=== PATIENT | male | born 1970 | race African-American/Black ===

== ENCOUNTER 2020-06-21 02:48 | Emergency (ER) | payer MEDICAID ==
[~2020-06-21] VITALS: Ht 182.9 cm; Wt 109.0 kg
[2020-06-21] MEDS ORDERED: KETOROLAC 30MG/ML VIAL IV STA (03:22)
[2020-06-21] MEDS ORDERED: GABAPENTIN 300MG CAPSULE PO ONE (03:30)
[2020-06-21 03:46] LABS: BASOPHILS % 1.3 % (0.0-2.0); EOSINOPHILS % 1.1 % (0.0-5.0); HEMATOCRIT. 35.8 % (42.0-52.0); HEMOGLOBIN. 12.2 g/dL (14.0-18.0); LYMPHOCYTES % 31.3 % (20.0-50.0); MEAN PLATELET VOLUME 8.4 fl (7.4-10.4); MONOCYTES % 6.8 % (2.0-8.0); NEUTROPHILS % 59.5 % (40.0-76.0); PLATELET 246 x1000/uL (130-400); RED BLOOD CELL COUNT 4.37 mill/uL (4.7-6.1); RED CELL DISTRIBUTION WIDTH 15.1 % (11.6-14.6)
[2020-06-21 03:49] LABS: CHLORIDE 103 mEq/L (98-107)
[2020-06-21 03:54] LABS: CLARITY URINE CLEAR (CLEAR); COLOR URINE YELLOW (YELLOW); KETONES URINE NEGATIVE (NEGATIVE); LEUKOCYTE ESTERASE URINE NEGATIVE (NEGATIVE); NITRITE URINE NEGATIVE (NEGATIVE); OCCULT BLOOD URINE TRACE (NEGATIVE); PH URINE 5.5 (4.5-8.0); PROTEIN URINE TRACE (NEGATIVE); SPECIFIC GRAVITY URINE 1.029 (1.005-1.030); UROBILINOGEN URINE 0.2 E.U./dL (0.2-1.0)
[2020-06-21] MEDS ORDERED: GABA300C MT (06:24)
[2020-06-21 06:34] VITALS: BP 154/94
== END 2020-06-21 06:59 | disposition home or self-care (01) ==
LOC: ER 02:48
DX: B02.9 Zoster without complications (principal); E78.00 Pure hypercholesterolemia, unspecified; I10 Essential (primary) hypertension; Z87.891 Personal history of nicotine dependence; F12.10 Cannabis abuse, uncomplicated
CPT/HCPCS: 36415; 71045; 80053; 81003; 83690; 85025; 93005; 96374; 99285; J1885